=== PATIENT | male | born 1995 | race Two or more races ===

== ENCOUNTER 2024-08-22 22:56 | Emergency (ER) | payer OTHER ==
[~2024-08-22] VITALS: Ht 177.8 cm; Wt 104.5 kg
[2024-08-22 23:20] VITALS: TEMP 97.9
[2024-08-23 01:00] VITALS: BP 129/68; PULSE 77; RESP 18; O2SAT 100
[2024-08-23] MEDS: FLUORESCEIN SODIUM 1 MG STRIP OD ONE (01:00)
[2024-08-23] MEDS: PROPARACAINE HCL 0.5% 15 ML OPHTHALMIC SOLUTION OD ONE (01:00)
[2024-08-23] MEDS: ERYTHROMYCIN 0.5% 3.5 GM TUBE OPHTHALMIC OINTMENT OD ONE (03:52)
== END 2024-08-23 04:05 | disposition home or self-care (01) ==
LOC: EDBD 22:56 → EMS 22:56
DX: H57.11 Ocular pain, right eye (principal); H05.223 Edema of bilateral orbit; Z77.098 Contact with and (suspected) exposure to other hazardous, chiefly nonmedicinal, chemicals
CPT/HCPCS: 99284; J9035; Z7502; Z7610